=== PATIENT | female | born 1965 | race Caucasian/White ===

== ENCOUNTER → 2017-04-28 | Outpatient (CLI) | payer BC ==
--- NOTE | 2017-04-28 17:21 | KCIC ---
History: Routine Screening. Technique: Bilateral digital mammographic routine views were obtained with CAD - computer aided detection. Previous: None. Findings: Breast Tissue Density B :The breast tissue is composed of mixed fatty and fibroglandular tissue. There is an asymmetric density in the lateral left breast on the CC view MLO view. There are no other suspicious findings. Recommendations: The patient should return for the following views: Rolled CC views, spot MLO view, an ML view to exclude a mass. Ultrasound may be necessary as well. BI-RADS Category 0: Incomplete. Need additional imaging evaluation. The mammography staff will provide imaging followup orders and will contact the patient for followup. "Our facility is accredited by the [employer] Mammography [employer]." Electronically signed by: Rich Cornelius III, MD (04/28/2017 5:17 PM) [facility]
== END | disposition home or self-care (01) ==
LOC: KCIC MAMMO 14:39
PROVIDERS: ATTEND Family Medicine
DX: Z12.31 Encounter for screening mammogram for malignant neoplasm of breast (principal)
CPT/HCPCS: G0202; 77067

== ENCOUNTER → 2017-05-11 | Outpatient (CLI) | payer BC ==
--- NOTE | 2017-05-11 15:50 | KCIC ---
DATE: 05/11/2017. EXAM: DIGITAL DIAGNOSTIC LT, ULTRASOUND BREAST LEFT. HISTORY: Density on mammographic screening. Additional views and sonography are requested. COMPARISON: 04/28/2017. This study was interpreted with the benefit of Computerized Aided Detection (CAD). FINDINGS: The breast parenchyma shows scattered fibroglandular densities. Breast parenchyma level B.. The region of concern laterally on the left CC view appears parenchymal on rolled images. On spot compression in the MLO projection, there is a small interstitial density at 7 concern without a clearly suspicious mass. Sonography was performed from the 3:00 to the 6:00 position. There is no suspicious sonographic finding. Normal-appearing lymph nodes with prominent fatty aleksandr are incidentally noted in the left axilla. BI-RADS CATEGORY: 3 PROBABLY BENIGN FINDING(S)-SHORT INTERVAL FOLLOW-UP SUGGESTED. Recommend 6 month follow-up of a small region of possible architectural distortion inferiorly on the left MLO view without sonographic correlate at baseline. RECOMMENDED FOLLOW-UP: 6M 6 MONTH FOLLOW-UP. PQRS compliance statement: Patient information was entered into a reminder system with a target due date 11/08/2017 for the next mammogram. Mammography is a sensitive method for finding small breast cancers, but it does not detect them all and is not a substitute for careful clinical examination. A negative mammogram does not negate a clinically suspicious finding and should not result in delay in biopsying a clinically suspicious abnormality. "Our facility is accredited by the [employer] Mammography Program."
== END | disposition home or self-care (01) ==
LOC: KCIC MAMMO 14:36
PROVIDERS: ATTEND Family Medicine
DX: R92.8 Other abnormal and inconclusive findings on diagnostic imaging of breast (principal)
CPT/HCPCS: 76641; G0206; 77065

== ENCOUNTER → 2017-07-16 | Day surgery (SDC) | payer BC ==
[~2017-07-16] MED LIST: LIDOCAINE 1% PF 2 ML VIAL. ID; LIDOCAINE 2% 100 MG/5 ML SYRINGE.; MIDAZOLAM HCL/PF 2 MG/2 ML VIAL. IV; PROPOFOL 40 ML IV; fentaNYL PF VIAL 100 MCG/2 ML VIAL IV
[2017-07-16] MEDS: IV RINGERS,LACTATED 1000ML 1,000 ML IV (06:56)
== END | disposition home or self-care (01) ==
LOC: ENDOS 06:22
DX: Z12.11 Encounter for screening for malignant neoplasm of colon (principal); D12.5 Benign neoplasm of sigmoid colon; K64.0 First degree hemorrhoids; K57.30 Diverticulosis of large intestine without perforation or abscess without bleeding; K21.9 Gastro-esophageal reflux disease without esophagitis; F41.9 Anxiety disorder, unspecified; M19.90 Unspecified osteoarthritis, unspecified site; Z72.0 Tobacco use; Z90.49 Acquired absence of other specified parts of digestive tract; Z98.51 Tubal ligation status; Z90.710 Acquired absence of both cervix and uterus; Z87.440 Personal history of urinary (tract) infections; Z88.6 Allergy status to analgesic agent; Z88.0 Allergy status to penicillin; Z88.2 Allergy status to sulfonamides
CPT/HCPCS: 45385; 88305; J2704

== ENCOUNTER → 2017-10-19 | Outpatient (CLI) | payer BC | END | disposition home or self-care (01) | LOC: KCIC MAMMO 14:25 | DX: R92.2 Inconclusive mammogram (principal); K21.9 Gastro-esophageal reflux disease without esophagitis | CPT/HCPCS: 77065 ==

== ENCOUNTER 2019-01-08 18:59 | Emergency (ER) | payer BC, OTHER ==
[~2019-01-08] VITALS: Ht 152.4 cm; Wt 63.5 kg
[~2019-01-08 18:59] MED LIST changes: +DEXT15TA PO; +IBUP-1007 PO; -LIDOCAINE 1% PF 2 ML VIAL. ID; -LIDOCAINE 2% 100 MG/5 ML SYRINGE.; -MIDAZOLAM HCL/PF 2 MG/2 ML VIAL. IV; -PROPOFOL 40 ML IV; +RANI150C PO; -fentaNYL PF VIAL 100 MCG/2 ML VIAL IV
--- NOTE | 2019-01-08 20:01 | PHYS DOC ---
Past Medical History Past Medical History: Anxiety, GERD Past Surgical History: No Surgical History Alcohol Use: Occasionally Drug Use: Marijuana Adult General Chief Complaint Chief Complaint: LACERATION/AVULSION HPI HPI Patient is a 53 year old female, accompanied by her , who presents to the emergency room with complaints of right fifth digit skin avulsion after using a mandolin tonight. She states that they were unable to get the bleeding to stop so they came to the emergency department. She denies any numbness, tingling, decreased range of motion, or pain of the affected digit. She states her last tetanus shot was within the last 5 years. She denies any pain at this time. Patient denies any use of blood thinners. Review of Systems Review of Systems Constitutional: Denies fever or chills [] Musculoskeletal: Denies joint pain [] Integument:see history of present illness Neurologic: Denies headache, focal weakness or sensory changes [] Allergies Allergies Allergies Coded Allergies Type Severity Reaction Last Updated Verified codeine Allergy Unknown 07/16/17 Yes Uncoded Allergies Type Severity Reaction Last Updated Verified SULFA Allergy Mild 07/14/17 PENICILLIN Allergy Unknown 07/14/17 Physical Exam Physical Exam Constitutional: Well developed, well nourished, no acute distress, non-toxic appearance. [] HENT: Normocephalic, atraumatic, bilateral external ears normal, nose normal. [] Eyes: conjunctiva normal, no discharge. [] Lungs & Thorax: Respirations even and unlabored, no retractions, no respiratory distress Skin: Warm, dry, no erythema, no rash; 1 cm x 3 mm avulsion area noted to palmar aspect of right fifth digit distal to the DIP, no active bleeding. [] Extremities: No tenderness, no cyanosis, no clubbing, ROM intact, no edema. [] Neurologic: Alert and oriented X 3, normal motor function, normal sensory function, no focal deficits noted. [] Psychologic: Affect normal, judgement normal, mood normal. [] Current Patient Data Vital Signs Vital Signs Date Time Temp Pulse Resp B/P (MAP) Pulse Ox O2 Delivery O2 Flow Rate FiO2 01/08/19 19:11 98.0 83 17 131/74 (93) 100 Room Air 98.0 EKG EKG [] Radiology/Procedures Radiology/Procedures [] Course & Med Decision Making Course & Med Decision Making Pertinent Labs and Imaging studies reviewed. (See chart for details) [] Dragon Disclaimer Dragon Disclaimer This electronic medical record was generated, in whole or in part, using a voice recognition dictation system. Departure Departure Impression: Primary Impression: Avulsion of skin of finger without complication Disposition: 01 HOME, SELF-CARE Condition: STABLE Referrals: JOSE RAMON BENTLEY MD (PCP) Patient Instructions: Finger Avulsion Additional Instructions: Keep the area clean and dry. You may take Tylenol or ibuprofen as needed for pain. Follow-up with her primary care doctor if symptoms persist, return to the ER symptoms worsen. Problem Qualifiers Primary Impression: Avulsion of skin of finger without complication Encounter type: initial encounter Qualified Codes: S61.209A - Unspecified open wound of unspecified finger without damage to nail, initial encounter KERLINE OCONNELL APRN Jan 08, 2019 20:01
[2019-01-08 20:15] VITALS: BP 133/85
== END 2019-01-08 20:14 | disposition home or self-care (01) ==
LOC: ER 18:59
DX: S61.306A Unspecified open wound of right little finger with damage to nail, initial encounter (principal); K21.9 Gastro-esophageal reflux disease without esophagitis; Z88.2 Allergy status to sulfonamides; Z88.0 Allergy status to penicillin; Z88.5 Allergy status to narcotic agent; W27.4XXA Contact with kitchen utensil, initial encounter; Y93.89 Activity, other specified; Y92.89 Other specified places as the place of occurrence of the external cause; Y99.8 Other external cause status
CPT/HCPCS: 99283

== ENCOUNTER → 2019-08-25 | Outpatient (CLI) | payer BC ==
--- NOTE | 2019-08-25 13:02 | KCIC ---
Bilateral digital screening mammograms: Reason for examination: Routine screening. Comparison is made to previous study dated 04/28/2017. Interpretation was made with the benefit of CAD. The skin and nipples show no abnormalities. No abnormal axillary lymph nodes are seen. The breast parenchyma shows scattered fibroglandular density. (Breast density: Category B.) There are no dominant masses, suspicious calcifications or architectural distortions. Impression: No evidence of malignancy. Recommend routine screening. BI-RADS Category 1: Negative. "Our facility is accredited by the [employer] Mammography Program." This patient's information has been entered into a reminder system for the patient to be notified with the results of her examination and a target date for the next mammogram. Electronically signed by: Adenike Fitzgerald MD (08/25/2019 12:59 PM) [id number]
== END | disposition home or self-care (01) ==
LOC: KCIC MAMMO 08:30
PROVIDERS: ATTEND Internal Medicine
DX: Z12.31 Encounter for screening mammogram for malignant neoplasm of breast (principal)
CPT/HCPCS: 77067

== ENCOUNTER → 2019-10-13 | Outpatient (CLI) | payer BC ==
[~2019-10-13] MED LIST changes: +IOHEXOL 180 MG/ML 10 ML VIAL. ONE; +OMEP40CA45 PO; +OXYC1TAB19 PO; +methylPREDNISolone ACETATE 40 MG/ML VIAL. ONE; +methylPREDNISolone ACETATE 80 MG/ML VIAL. ONE
--- NOTE | 2019-10-13 13:48 | PAIN ---
DATE OF SERVICE: 10/13/2019 INITIAL CONSULTATION FOR PAIN CLINIC CHIEF COMPLAINT: Low back and left greater than right lower extremity pain. HISTORY OF PRESENT ILLNESS: This is a 54-year-old female who presents today with history of pain for about 5 months in the low back and the lower extremities. The patient reports she had a fall at work and she had some stiffness in her back prior to this. It was not until she fell and started radiating into her lower extremities, especially on the left side. The patient reports pain now is constant, sharp, shooting, radiating, changes during the day, intermittent in intensity, burning and aching across the low back and into the posterior gluteus, posterolateral thigh, lateral anterior thigh, again worse on the left side into the medial aspect of the knee in the lower leg occasionally, but mostly in the upper leg and in the back, both sides. The patient reports it is constant, sharp, shooting and aching in the back itself with radiating pain in the legs. She has tried physical therapy as well as exercise, which she is currently doing without significant decrease in pain. This was in July and August of this year. She had a sacroiliac joint injection at her primary care's office, which was helpful, but only temporarily for about a week. The pain was decreased, but not gone. The patient reports it is worse with walking, standing, changing positions, better with sitting or lying down, awakens her from sleep continuously as well and she is constantly tossing and turning. It does not affect her bowel or bladder control, but does affect her ability to walk, but she is not using any assistive devices. The patient has tried anti-inflammatory medications as well as muscle relaxants, neither of which have decrease the pain as well. The patient rates her disability rating from 0-10, 10 being the worst, is an 8 with family and home responsibilities, 10 with recreation and occupational activities, 7 with social activity, 9 with sexual behavior, 5 with self-care and life support activities. The patient did have an MRI scan of the lumbar spine showing L4-L5 mild diffuse disk bulge asymmetric and greater on the patient's left with mild left neural foraminal narrowing. L5-S1 shows minimal anterolisthesis of L5 on S1, minimal disk bulging present without significant neural foraminal narrowing at that level. PAST MEDICAL HISTORY: Significant for arthritis, cigarette smoking. PREVIOUS SURGERY: Include hysterectomy, cholecystectomy, tubal ligation and tonsillectomy. CURRENT MEDICATIONS: Include Adderall, ibuprofen, omeprazole, and Percocet. ALLERGIES: THE PATIENT IS ALLERGIC TO CODEINE, PENICILLIN AND SULFA. FAMILY HISTORY: Significant for no major medical problems or conditions that she is aware of. SOCIAL HISTORY: The patient drinks alcohol occasionally, maybe 1 or 2 drinks every 3 months, smokes less than a pack a day, but has for 35 years and continues to smoke. Also, uses medical marijuana weekly. Reports she is , lives locally in [place], [place] and works at a local [employer]. REVIEW OF SYSTEMS: The patient's review of systems is positive for those items mentioned in history of present illness. All systems reviewed and otherwise negative. It is complete, full and well documented on the patient's chart. PHYSICAL EXAMINATION: VITAL SIGNS: The patient's blood pressure is 118/76, pulse 74, respirations 18, temperature 97.6 degrees Fahrenheit, height is 5 feet, weight is 134 pounds. GENERAL: The patient is awake, alert, oriented, appropriate, very pleasant demeanor. HEENT: Shows normocephalic, atraumatic. Extraocular movements are intact and symmetrical. Oral cavity shows mucous membranes moist and pink. Dentition is intact. NECK: Shows anterior throat supple without palpable lymphadenopathy noted. Swallow reflex symmetrical. CHEST: Shows normal on inspection. Breath sounds are clear bilaterally. No rales, rhonchi or wheezes auscultated. HEART: Shows S1, S2 clear. No murmurs auscultated. ABDOMEN: Soft, nontender, nondistended. BACK: Shows spine grossly in the midline, normal-appearing cervical lordotic curvature, thoracic kyphotic curvature and lumbar lordotic curvature with some tattooing noted. The patient's lumbar paraspinous muscle shows symmetrical on inspection, on palpation shows some mild tenderness in the middle distribution of paraspinous muscles, but not in the upper or lower distribution. No tenderness over the spinous processes, sacrum or sacroiliac regions. The patient has good rotational motion of lumbar spine, both laterally greater than 10 degrees right and left as well as extension greater than 10 degrees, forward flexion 45 degrees without significant pain reported. EXTREMITIES: The patient's lower extremities show deep tendon reflexes at 2+ patellar, 1+ tendo-calcaneus tendons. Motor exam is approximately 4 on a scale of 5 with left dorsiflexion, extension, quadriceps and hamstring flexion and 5/5 on the right. Peripheral pulses are 1+ posterior tibia. No peripheral edema is noted. Lower extremities are warm and dry to touch, equal in color and appearance. The patient's straight leg raise noted to be mildly positive on the left side about 30-40 degrees but will decrease with knee flexion, right side is negative. Gaenslen's and Froilan's maneuvers are negative bilaterally as well. The patient is able to stand, stand on her toes without difficulty or loss of balance, walks with a slight favoring gait, does appear to favor the left lower extremity mildly, but does not use any assistive devices to ambulate. SKIN: The patient's skin shows warm and dry, good turgor. No edema. No sores, rashes or bruising throughout. IMPRESSION: 1. This is a 54-year-old female with approximate 5-month history status post injury at work with pain in low back and left lower extremity greater than right in a radicular fashion. 2. MRI scan of lumbar spine as noted. 3. Arthritis. 4. Cigarette smoking. PLAN: Options were discussed with the patient including conservative medical managements, physical therapies and interventional techniques. She would like to pursue interventional techniques. We discussed a lumbar epidural steroid injection using description as well as anatomical models to describe the procedure. Risks were then discussed including, but not limited to bleeding, infection, possibility of epidural hematoma, subsequent neurological compromise, dural puncture, headaches, spinal cord and/or nerve damage, side effects of steroid medication and poor results regarding pain control. The patient understands and wished to proceed. The patient will return to clinic in approximately 2 weeks for followup. She was counseled on return appointment, activity level and side effects to be aware of. DIAGNOSES: Lumbar radiculopathy with lumbar degenerative disk disease. PROCEDURE: Lumbar epidural steroid injection, translaminar approach at L4-L5 level using C-arm fluoroscopic guidance under sterile prep and drape using local anesthetic. MEDICATION INJECTED: A total of 120 mg Depo-Medrol plus 10 mL of preservative-free normal saline and 2 mL of contrast. CONDITION AT DISCHARGE: Stable. The patient tolerated the procedure well, had no complications. RDAHA REYES MD DR: JAYDEN/jaleel JOB#: [id number] / [id number] ROBY Sotelo MD
== END | disposition home or self-care (01) ==
LOC: PNCL 08:41
PROVIDERS: ATTEND Anesthesiology
DX: M51.16 Intervertebral disc disorders with radiculopathy, lumbar region (principal); M19.90 Unspecified osteoarthritis, unspecified site; F17.210 Nicotine dependence, cigarettes, uncomplicated; Z98.51 Tubal ligation status; Z90.710 Acquired absence of both cervix and uterus; Z90.49 Acquired absence of other specified parts of digestive tract; Z98.890 Other specified postprocedural states; Z79.899 Other long term (current) drug therapy; Z88.0 Allergy status to penicillin; Z88.1 Allergy status to other antibiotic agents; Z88.6 Allergy status to analgesic agent
CPT/HCPCS: 62323; J1030; J1040; Q9965

== ENCOUNTER → 2019-12-26 | Outpatient (CLI) | payer BC ==
[~2019-12-26] MED LIST changes: -IOHEXOL 180 MG/ML 10 ML VIAL. ONE; -methylPREDNISolone ACETATE 40 MG/ML VIAL. ONE; -methylPREDNISolone ACETATE 80 MG/ML VIAL. ONE
--- NOTE | 2019-12-26 09:43 | RAD ---
EXAM: Left hand, 3 views. HISTORY: Finger swelling. COMPARISON: None. FINDINGS: 3 views of the left hand are obtained. There is no fracture, dislocation or subluxation. There is no radiodense foreign body. IMPRESSION: No acute osseous finding. Electronically signed by: Gaby Gabriel MD (12/26/2019 9:39 AM) [id number]
== END | disposition home or self-care (01) ==
LOC: RAD 09:15
PROVIDERS: ATTEND Physician Assistant Medical
DX: M79.89 Other specified soft tissue disorders (principal)
CPT/HCPCS: 73130